=== PATIENT | male | born 1945 | race Caucasian/White ===

== ENCOUNTER 2019-05-28 03:36 | Observation (INO) | payer MEDICARE, BC ==
[~2019-05-28] VITALS: Ht 182.9 cm; Wt 144.0 kg
[2019-05-28 03:52] LABS: BASOPHILS # (AUTO) 0.1 X10'3 (0-0.2); BASOPHILS % (AUTO) 0.9 % (0-1); EOSINOPHILS # (AUTO) 0.4 X10'3 (0-0.9); EOSINOPHILS % (AUTO) 2.9 % (0-6); HEMATOCRIT 35.1 % (42.0-52.0); HEMOGLOBIN 11.6 g/dl (14.0-17.9); LYMPHOCYTES % (AUTO) 15.3 % (21-51); MEAN CORPUSCULAR HEMOGLOBIN 30.8 PG (27.0-31.0); MEAN CORPUSCULAR HGB CONC 33.1 g/dL (33.0-36.5); MEAN CORPUSCULAR VOLUME 93.2 FL (78-98); MEAN PLATELET VOLUME 8.7 FL (7.4-10.4); MONOCYTES # (AUTO) 1.4 X10'3 (0-0.9); NEUTROPHILS % (AUTO) 69.9 % (42-75); PLATELET COUNT 189 X10'3 (140-440); RED BLOOD COUNT 3.76 X10'6 (4.70-6.10); RED CELL DISTRIBUTION WIDTH 15.7 % (11.5-14.5); WHITE BLOOD COUNT 12.9 X10'3 (4.5-11.0)
[2019-05-28 04:03] LABS: PARTIAL THROMBOPLASTIN TIME 29 SECONDS (22-32)
[2019-05-28 04:05] LABS: ALANINE AMINOTRANSFERASE 27 U/L (12-78); ALBUMIN 3.2 G/DL (3.4-5.0); ALBUMIN/GLOBULIN RATIO 0.7 (1.1-1.5); ALKALINE PHOSPHATASE 49 IU/L (46-116); ANION GAP 9 (8-16); ASPARTATE AMINO TRANSFERASE 21 U/L (10-37); BILIRUBIN,TOTAL 0.4 MG/DL (0.1-1.0); BLOOD UREA NITROGEN 56 MG/DL (7-18); BUN/CREATININE RATIO 19.2 (5.4-32.0); CALCIUM 8.6 MG/DL (8.5-10.1); CHLORIDE 105 MMOL/L (99-107); CREATININE 2.91 MG/DL (0.60-1.10); GLUCOSE 105 MG/DL (70-104); POTASSIUM 3.3 MMOL/L (3.5-5.1); SODIUM 141 MMOL/L (135-145); TOTAL CARBON DIOXIDE 26.6 MMOL/L (24-32); TOTAL PROTEIN 7.9 G/DL (6.4-8.2); eGFR 21 ML/MIN
[2019-05-28] MEDS ORDERED: normal saline 1000ml 1,000 ML IV SCH (05:25)
[2019-05-28] MEDS ORDERED: magnesium Cl slow-release 64mg tablet PO PRN (05:25)
[2019-05-28] MEDS ORDERED: glucagon, human recombinant 1mg kit SUBCUT PRN (05:25)
[2019-05-28] MEDS ORDERED: dextrose ORAL solution 15 GM/59 ML bottle PO PRN ×2 (05:25)
[2019-05-28] MEDS ORDERED: magnesium 4gm in 100ml NS 100 ML IV PRN (05:25)
[2019-05-28] MEDS ORDERED: magnesium 2GM in 50ml NS 50 ML IV PRN (05:25)
[2019-05-28] MEDS ORDERED: potassium CL 10mEq/100ml bag 100 ML IV PRN ×2 (05:25)
[2019-05-28] MEDS ORDERED: dextrose 50%-water 50ml dispensing syringe IV PRN ×2 (05:25)
[2019-05-28] MEDS ORDERED: mag hydrox/Alum hydrox/simeth 30ml oral suspension PO PRN (05:25)
[2019-05-28] MEDS ORDERED: docusate sod 100mg capsule PO PRN (05:25)
[2019-05-28] MEDS ORDERED: acetaminophen 325mg tablet PO PRN (05:25)
[2019-05-28] MEDS ORDERED: MESSAGE TO PHARMACY PO ONE (05:25)
[2019-05-28] MEDS ORDERED: insulin Lispro (HumaLOG) vial - multi-dose SQ SCH (05:25)
[2019-05-28] MEDS ORDERED: ondansetron/PF 4mg/2ml inj IV PRN (05:25)
[2019-05-28] MEDS ORDERED: potassium Cl 20 mEq SR tablet PO PRN ×2 (05:25)
[2019-05-28] MEDS ORDERED: APIX5TAB3 PO (05:37)
[2019-05-28] MEDS ORDERED: GLIM1TAB3 PO (05:37)
[2019-05-28] MEDS ORDERED: CARV3.122 PO (05:37)
[2019-05-28] MEDS ORDERED: INSU100V9 SQ (05:37)
[2019-05-28] MEDS ORDERED: ISOS30TA6 PO (05:37)
[2019-05-28] MEDS ORDERED: SITA100T11 PO (05:37)
[2019-05-28] MEDS ORDERED: SIMV20TA5 PO (05:37)
[2019-05-28] MEDS ORDERED: DILT-35 PO (05:37)
[2019-05-28] MEDS ORDERED: SACU1TAB7 (05:37)
[2019-05-28] MEDS ORDERED: INSU100C10 SQ (05:37)
[2019-05-28] MEDS ORDERED: FENO135C4 PO (05:37)
[2019-05-28] MEDS ORDERED: hydrALAZINE 20mg/ml inj. IV PRN (05:45)
[2019-05-28 07:12] LABS: HEMOGLOBIN A1C 6.7 % (4.5-6.2)
[2019-05-28 07:20] LABS: TROPONIN I < 0.04 NG/ML (0.0-0.05)
[2019-05-28 07:23] VITALS: BP 144/77
[2019-05-28] MEDS ORDERED: enoxaparin 30mg/0.3ml syringe SQ SCH (08:00)
[2019-05-28] MEDS ORDERED: K and/or MAG REPLACEMENT MC SCH (08:00)
--- NOTE | 2019-05-28 08:46 | NUR ---
Patient arrived to PCU at 0723. is at bedside, RN skin check was done, physical assessment done, patient oriented to room, call light provided, and vital signs obtained. Will continue to monitor.
[2019-05-28] MEDS ORDERED: GLIM4TAB4 PO (09:25)
[2019-05-28] MEDS ORDERED: FURO-149 PO (09:27)
[2019-05-28 11:00] VITALS: BP 142/74
[2019-05-28 15:00] VITALS: BP 152/104
--- NOTE | 2019-05-28 16:33 | NUR ---
Paged hospitalist. PAGER ID: [phone] MESSAGE: Lexy lacie [phone]. Vasile De Jesus [id number]. FYI all trops are back and negative. Pt inquiring about discharge. Thanks!
--- NOTE | 2019-05-28 17:57 | NUR ---
Per MD order patient stable for discharge. Discharge packet printed and reviewed with patient and at bedside. Patient is amenable to discharge. Tele monitor and IV removed with cannula intact. All belongings sent with patient. Patient discharged home, escorted to private vehicle via wheelchair
[2019-05-28] MEDS ORDERED: insulin glargine (Lantus) pen - multi-dose SQ SCH (21:00)
[2019-05-30] MEDS ORDERED: FLU VACC QS2019-20 36MOS UP/PF 60 MCG/0.5 ML SYRINGE IMVAC ONE (12:30)
== END 2019-05-28 17:58 | disposition home or self-care (01) ==
LOC: ER 03:37 → ED HOLD 05:43 → PCU 3S 07:23
PROVIDERS: ADMIT Family Medicine; ATTEND Family Medicine
DX: M79.601 Pain in right arm (principal); R07.89 Other chest pain; I48.91 Unspecified atrial fibrillation; E78.00 Pure hypercholesterolemia, unspecified; E11.65 Type 2 diabetes mellitus with hyperglycemia; I13.0 Hypertensive heart and chronic kidney disease with heart failure and stage 1 through stage 4 chronic kidney disease, or unspecified chronic kidney disease; E11.22 Type 2 diabetes mellitus with diabetic chronic kidney disease; N18.9 Chronic kidney disease, unspecified; I50.9 Heart failure, unspecified; E78.5 Hyperlipidemia, unspecified; I25.10 Atherosclerotic heart disease of native coronary artery without angina pectoris; I24.9 Acute ischemic heart disease, unspecified; I21.9 Acute myocardial infarction, unspecified; E87.6 Hypokalemia; E66.01 Morbid (severe) obesity due to excess calories; D64.9 Anemia, unspecified; I49.1 Atrial premature depolarization; Z95.5 Presence of coronary angioplasty implant and graft; Z95.810 Presence of automatic (implantable) cardiac defibrillator; Z96.641 Presence of right artificial hip joint; Z96.651 Presence of right artificial knee joint; Z79.4 Long term (current) use of insulin; Z79.899 Other long term (current) drug therapy; Z68.41 Body mass index [BMI] 40.0-44.9, adult
CPT/HCPCS: 36415; 71045; 80053; 82948; 83036; 84484; 85025; 85610; 85730; 87081; 93005; 93306; 96360; 96361; 96372; 99284; G0378; J1650; J7030; 90471; G0008; J1815

== ENCOUNTER 2022-05-04 05:29 | Day surgery (SDC) | payer MEDICARE, BC ==
[2022-04-26 17:19] LABS: BASOPHILS # (AUTO) 0.1 X10'3 (0-0.2); BASOPHILS % (AUTO) 0.6 % (0-1); EOSINOPHILS # (AUTO) 0.2 X10'3 (0-0.9); EOSINOPHILS % (AUTO) 2.4 % (0-6); LYMPHOCYTES # (AUTO) 1.8 X10'3 (1.1-4.8); LYMPHOCYTES % (AUTO) 21.3 % (21-51); MEAN CORPUSCULAR HEMOGLOBIN 35.4 PG (27.0-31.0); MEAN CORPUSCULAR HGB CONC 33.1 g/dL (33.0-36.5); MEAN CORPUSCULAR VOLUME 106.9 FL (78-98); MEAN PLATELET VOLUME 9.1 FL (7.4-10.4); MONOCYTES # (AUTO) 0.9 X10'3 (0-0.9); MONOCYTES % (AUTO) 10.6 % (2-12); NEUTROPHILS # (AUTO) 5.5 X10'3 (1.8-7.7); NEUTROPHILS % (AUTO) 65.1 % (42-75); PRE OP HEMATOCRIT 33.4 % (42.0-52.0); PRE OP HEMOGLOBIN 11.1 g/dL (14.0-17.9); PRE OP PLATELET COUNT 118 X10'3 (140-440); RED BLOOD COUNT 3.13 X10'6 (4.70-6.10); RED CELL DISTRIBUTION WIDTH 22.4 % (11.5-14.5)
[2022-04-26 17:42] LABS: ALBUMIN 3.1 G/DL (3.4-5.0); ALBUMIN/GLOBULIN RATIO 0.7 (1.1-1.5); ALKALINE PHOSPHATASE 58 IU/L (46-116); ANISOCYTOSIS 3+; BLOOD UREA NITROGEN 25 MG/DL (7-18); BUN/CREATININE RATIO 5.9 (5.4-32.0); CALCIUM 8.8 MG/DL (8.5-10.1); CHLORIDE 100 MMOL/L (99-107); CREATININE 4.21 MG/DL (0.60-1.10); PLATELET ESTIMATE DECREASED; POLYCHROMASIA 1+; PRE OP ALT 52 U/L (30-65); PRE OP ANION GAP 9 (8-16); PRE OP AST 56 U/L (10-37); PRE OP BILIRUB, TOTAL 0.5 MG/DL (0.0-1.0); PRE OP GLUCOSE 146 MG/DL (70-104); PRE OP POTASSIUM 4.6 MMOL/L (3.4-5.1); PRE OP SODIUM 140 MMOL/L (135-145); TOTAL CARBON DIOXIDE 30.8 MMOL/L (24-32); TOTAL PROTEIN 7.4 G/DL (6.4-8.2); eGFR 14 ML/MIN
[2022-05-04] VITALS (8 sets, daily range): BP systolic 91–167; BP diastolic 51–131
[~2022-05-04] VITALS: Ht 185.4 cm; Wt 135.1 kg
[~2022-05-04 05:29] MED LIST: APIX5TAB3 PO; ASCO500C17 PO; CHOL400T57 PO; CYAN-34 PO; FENO135C4 PO; FERR-119 PO; FURO-149 PO; INSU100C10 SQ; INSU100V9 SQ; ISOS30TA84 PO; LINA5TAB4 PO; METO-384 PO; SACU1TAB7 PO; SEVE800T7; SIMV-42 PO; ringers solution, lacted 1,000 ML IV SCH
[2022-05-04] MEDS ORDERED: DOCUMENT DATE & TIME OF BETA-BLOCKER PO ONE (05:30)
[2022-05-04] MEDS ORDERED: famotidine 20mg tablet PO ONE (05:30)
[2022-05-04] MEDS ORDERED: ceFAZolin inj. 3,000 MG in normal saline 100ml IV soln 100 ML IV ONE (05:30)
[2022-05-04] MEDS ORDERED: LIDOCAINE 1%/EPI 1:100,000 inj. 10 ML multi-dose vial ONE (06:43)
[2022-05-04] MEDS ORDERED: BUPIVAcaine/PF 2.5mg/ml (0.25%) 10ml vial ONE (06:43)
[2022-05-04] MEDS ORDERED: heparin 10,000 units/1 ML INJ ONE (06:44)
[2022-05-04] MEDS ORDERED: fentaNYL/PF 50MCG/1 ML 2ML syringe ONE (08:33)
[2022-05-04] MEDS ORDERED: midazolam 1 mg/ML 2ml injection ONE (08:33)
[2022-05-04] MEDS ORDERED: propofol inj 20 ML IV ONE ×5 (08:58→09:36)
[2022-05-04] MEDS ORDERED: proCHLORperazine 10 MG/2 ml inj IV PRN (09:40)
[2022-05-04] MEDS ORDERED: hydrALAZINE 20mg/ml inj. IV PRN (09:40)
[2022-05-04] MEDS ORDERED: morphine 2 MG/ML inj. syringe IV PRN (09:40)
[2022-05-04] MEDS ORDERED: acetaminophen 1,000mg/100ml IV 100 ML IV PRN (09:40)
[2022-05-04] MEDS ORDERED: labetalol 20mg/4ml (5mg/ml) syringe IV PRN (09:40)
[2022-05-04] MEDS ORDERED: HYDROmorphone/PF 0.2 MG/ML SYRINGE IV PRN (09:40)
[2022-05-04] MEDS ORDERED: normal saline 1000ml 1,000 ML IV ONE (09:40)
[2022-05-04] MEDS ORDERED: ondansetron/PF 4mg/2ml inj IV PRN (09:40)
--- NOTE | 2022-05-04 10:12 | NUR ---
Received from OR via alis, accompanied by Anesthesiologist and report given by Luis F Anesthesiologist. PATIENT WAKING UP, NO S/S OF PAIN, V/S WNL, SCD ON, 20G TO R Hand, drsg to left arm-CDI. Addendum: 05/04/22 at 1031 by Tristian Rashid RN Amended: Links added.
--- NOTE | 2022-05-04 11:12 | NUR ---
ALL DISCHARGE CRITERIA HAS BEEN MET. VSS, PAIN AT A TOLERABLE LEVEL, ABLE TO SAFELY AMBULATE AND TRANSFER SELF. IV TAKEN OUT WITHOUT ANY COMPLICATIONS. ALL DISCHARGE INSTRUCTIONS COVERED WITH PATIENT AND ALL QUESTIONS ANSWERED. PATIENT TAKEN OUT VIA WHEELCHAIR TO PERSONAL VEHICLE WHERE FAMILY DROVE PATIENT HOME. Addendum: 05/04/22 at 1127 by Tristian Rashid RN Amended: Links added.
== END 2022-05-04 11:12 | disposition home or self-care (01) ==
LOC: PAS 05:29
PROVIDERS: ATTEND Surgery
DX: E11.22 Type 2 diabetes mellitus with diabetic chronic kidney disease (principal); I13.0 Hypertensive heart and chronic kidney disease with heart failure and stage 1 through stage 4 chronic kidney disease, or unspecified chronic kidney disease; N18.9 Chronic kidney disease, unspecified; Z88.8 Allergy status to other drugs, medicaments and biological substances; Z79.899 Other long term (current) drug therapy; Z98.890 Other specified postprocedural states; M19.90 Unspecified osteoarthritis, unspecified site; I25.2 Old myocardial infarction; I48.20 Chronic atrial fibrillation, unspecified; Z96.651 Presence of right artificial knee joint; Z95.0 Presence of cardiac pacemaker
CPT/HCPCS: 36821; 80053; 82948; 85025; 87811; J0690; J1644; J2250; J2270; J2704; J3010; J3490; J7030; J7040; J7120; Z7506; Z7508; Z7512; 85008; A4215; A4618; A7000